=== PATIENT | male | born 1965 | race Caucasian/White ===

== ENCOUNTER 2018-06-30 13:15 | Inpatient (IN) | payer BC ==
--- NOTE | 2018-06-30 13:55 | EDM.PDOC ---
ED HPI GENERAL MEDICAL PROBLEM - General Chief Complaint: General Stated Complaint: BACK PAIN Time Seen by Provider: 06/30/18 13:37 Source of Information: Reports: Patient, Family History Limitations: Reports: No Limitations - History of Present Illness INITIAL COMMENTS - FREE TEXT/NARRATIVE: Patient presents to ER per EMS with complaints of low back pain with radiculopathy to legs. States bent over at [employer] yesterday and legs went numb and he went down to the floor. Patient states he has never had pain like that before. Was taken to the [place] ER. Had a MRI there which showed chronic degenerative changes in his back. Was given a shot of steroid and sent home on pain meds as he was doing better. [place] he was going to need follow up with his primary care provider and ultimately may need back surgery but it was not felt to be emergent in nature as there was no evidence of a ruptured disk. He does have a history of diabetes but denies ever losing feeling in his legs or feet from that. Today, he was doing okay when all of a sudden acute pain and numbness again hit. He has been taking oxycodone and flexeril as he was told that he would need to lose weight before he could ever have surgery. Denies loss of bowel or bladder in either instance of pain. No shortness of breath or chest pain. No nausea or vomiting. States hasn't had a bowel movement yet today and typically goes daily. Onset: Sudden Duration: Day(s):, Waxing/Waning Location: Reports: Back Quality: Reports: Burning Severity: Severe Improves with: Reports: Medication Worsens with: Reports: Movement Context: Reports: Activity Associated Symptoms: Denies: Confusion, Chest Pain, Cough, Fever/Chills, Loss of Appetite, Nausea/Vomiting, Shortness of Breath, Syncope, Weakness Treatments ARC TRIMMER: Reports: Other Medication(s) (oxycodone and flexeril) Lower Back Pain Score (Numeric/FACES): 7 - Related Data Allergies Allergy/AdvReac Type Severity Reaction Status Date / Time No Known Allergies Allergy Verified 06/30/18 13:37 Home Meds: Home Meds Aspirin 81 mg PO BRK 10/26/16 [History] Bosutinib [Bosulif] 500 mg PO DAILY 10/26/16 [History] Clopidogrel Bisulfate [Clopidogrel] 75 mg PO DAILY 10/26/16 [History] Famotidine [Pepcid] 10 mg PO BEDTIME 10/26/16 [History] Furosemide 40 mg PO DAILY 10/26/16 [History] Insulin Aspart Protam & Aspart [Novolog Mix 70-30 Flexpen Syrn] 50 units SQ ACDINNER 10/26/16 [History] Insulin Aspart Protam & Aspart [Novolog Mix 70-30 Flexpen Syrn] 100 units SQ ACBREAKFAST 10/26/16 [History] Lisinopril 2.5 mg PO DAILY 10/26/16 [History] Metoprolol Tartrate 25 mg PO BID 10/26/16 [History] Nitroglycerin [Nitrostat] 0.4 mg SL Q5M PRN 10/26/16 [History] atorvaSTATin Calcium [Atorvastatin Calcium] 40 mg PO DAILY 10/26/16 [History] metFORMIN HCl [Metformin HCl] 850 mg PO DAILY 10/26/16 [History] oxyCODONE ER [OxyCONTIN] 10 mg PO Q12HR PRN 10/26/16 [History] oxyCODONE HCl/Acetaminophen [oxyCODONE-Acetaminophen 5-325] 1 tab PO Q8H PRN [History] Cholecalciferol (Vitamin D3) [Vitamin D] 5,000 unit PO DAILY 06/30/18 [History] Cyanocobalamin (Vitamin B12) [Vitamin B12] 1,000 unit PO DAILY 06/30/18 [History ] Past Medical History Cardiovascular History: Reports: High Cholesterol, Hypertension, Stents Gastrointestinal History: Reports: GERD Endocrine/Metabolic History: Reports: Diabetes, Type II Oncologic (Cancer) History: Reports: Leukemia - Past Surgical History Cardiovascular Surgical History: Reports: Coronary Artery Stent Musculoskeletal Surgical History: Reports: Other (See Below) Other Musculoskeletal Surgeries/Procedures:: hip repair Social & Family History - Family History Family Medical History: Noncontributory - Tobacco Use Smoking Status *Q: Never Smoker - Caffeine Use Caffeine Use: Reports: None - Recreational Drug Use Recreational Drug Use: No ED ROS GENERAL - Review of Systems Review Of Systems: See Below Constitutional: Reports: Weakness. Denies: Fever, Chills, Malaise, Decreased Appetite Respiratory: Denies: Shortness of Breath, Cough Cardiovascular: Reports: Edema. Denies: Chest Pain, Lightheadedness Endocrine: Reports: Fatigue GI/Abdominal: Reports: Constipation. Denies: Abdominal Pain, Decreased Appetite , Nausea : Reports: No Symptoms Musculoskeletal: Reports: Back Pain Skin: Reports: No Symptoms Neurological: Reports: Weakness ED EXAM, GENERAL - Physical Exam Exam: See Below Exam Limited By: No Limitations General Appearance: Alert, WD/WN, Moderate Distress Ears: Normal External Exam, Normal TMs Nose: Normal Inspection, Normal Mucosa, No Blood Throat/Mouth: Normal Inspection, Normal Oropharynx Head: Normocephalic Neck: Normal Inspection, Supple, Non-Tender Respiratory/Chest: No Respiratory Distress, Lungs Clear, Normal Breath Sounds Cardiovascular: Regular Rate, Rhythm GI/Abdominal: Normal Bowel Sounds, Soft, Non-Tender Back Exam: Decreased Range of Motion, Muscle Spasm, Vertebral Tenderness Extremities: Normal Inspection, Pedal Edema (trace of edema in his legs) Neurological: Alert, Oriented, Other (neuropathy in feet) Skin Exam: Warm, Dry Course - Vital Signs Last Recorded V/S: Last Vital Signs Temp 99 F 06/30/18 13:16 Pulse 76 06/30/18 13:16 Resp 20 06/30/18 13:16 BP 152/67 H 06/30/18 13:16 Pulse Ox 97 06/30/18 13:16 - Re-Assessments/Exams Free Text/Narrative Re-Assessment/Exam: 06/30/18 13:57 Discussed with family. Will admit to Dr. Burgos for acute inpatient. Pain control, steroids and physical therapy. Departure - Departure Time of Disposition: 13:58 Disposition: Admitted As Inpatient 67 Condition: Fair Clinical Impression: Acute low back pain - Discharge Information *PRESCRIPTION DRUG MONITORING PROGRAM REVIEWED*: No *COPY OF PRESCRIPTION DRUG MONITORING REPORT IN PATIENT JARAD: No Referrals: Hayden Burgos MD [Primary Care Provider] - - Problem List & Annotations (1) Acute low back pain SNOMED Code(s): 516666330 Code(s): M54.5 - LOW BACK PAIN Status: Acute Priority: High Current Visit: Yes Qualifiers: Back pain laterality: bilateral Sciatica laterality: sciatica of left side - Problem List Review Problem List Initiated/Reviewed/Updated: Yes - Assessment/Plan Admission H&P: Please use this note as an admission H&P Assessment:: Acute low back pain with right radiculopathy Plan: Admit to Dr. Burgos. IV steroids, sliding scale insulin due to this. Pain control. Physical therapy.
[2018-06-30] MEDS ORDERED: fentaNYL 100 MCG/2 ML SDV IVPUSH PRN (14:25)
[2018-06-30] MEDS ORDERED: Polyethylene Glycol 3350 Powder 17 GM Packet PO SCH (14:25)
[2018-06-30] MEDS ORDERED: Sodium Chloride 0.9% 10 ML Syringe FLUSH PRN (14:25)
[2018-06-30] MEDS ORDERED: Ondansetron 4 MG Tab.DIS PO PRN (14:25)
[2018-06-30] MEDS ORDERED: oxyCODONE 5 MG Tab PO PRN (14:25)
[2018-06-30] MEDS ORDERED: Ondansetron 4 MG/2 ML SDV IV PRN (14:25)
[2018-06-30] MEDS ORDERED: Temazepam 15 MG Cap PO PRN (14:25)
[2018-06-30] MEDS ORDERED: oxyCODONE ER 10 MG TAB.ER PO PRN (14:25)
[2018-06-30] MEDS ORDERED: methylPREDNISolone Sodium Succinate 125 MG/2 ML SDV IVPUSH SCH (15:00)
[2018-06-30] MEDS ORDERED: Insuln Aspart Prot/Insulin Aspart 100 Units/ML 3 ML FlexPen SUBCUT SCH (17:00)
[2018-06-30] MEDS: Insulin Aspart 100 Units/ML 3 ML Pen SUBCUT SCH ×2 (17:58→20:39)
[2018-06-30] MEDS ORDERED: Enoxaparin 40 MG/0.4 ML Syringe SUBCUT SCH (20:00)
[2018-06-30] MEDS ORDERED: Metoprolol Tartrate 25 MG Tab PO SCH (20:00)
[2018-06-30] MEDS ORDERED: Ketorolac 30 MG/ML SDV IVPUSH SCH ×2 (20:00)
[2018-06-30] MEDS ORDERED: Cyclobenzaprine 10 MG Tab PO SCH (20:00)
[2018-06-30 20:41] VITALS: BP 152/59
--- NOTE | 2018-06-30 20:59 | PCM.DCSUM1 ---
Discharge Summary - Hospital Course Free Text/Narrative:: Patient presented to ER per EMS with complaints of low back pain with radiculopathy to legs. States bent over at [employer] yesterday and legs went numb and he went down to the floor. Patient states he has never had pain like that before. Was taken to the [place] ER. Had a MRI there which showed chronic degenerative changes in his back. Was given an IV injection of steroid and sent home on pain meds as he was doing better. [place] he was going to need follow up with his primary care provider and ultimately may need back surgery but it was not felt to be emergent in nature. He does have a history of diabetes but denies ever losing feeling in his legs or feet from that. He states he has never had numbness in his legs before. Today, he was doing okay when all of a sudden acute pain and numbness again hit. He has been taking oxycodone and flexeril and family had been assisting him. Brother relates he attempted to get up to the bathroom and "was like weight". Denies loss of bowel or bladder in either instance of pain, however, brother relates he was incontinent while sitting in the recliner earlier. No shortness of breath or chest pain. No nausea or vomiting. States hasn't had a bowel movement yet today and typically goes daily. Did have a BM yesterday. Diagnosis: Stroke: No - Discharge Data Discharge Date: 06/30/18 Discharge Disposition: Home, Self-Care 01 Condition: Fair - Discharge Diagnosis/Problem(s) (1) Acute low back pain SNOMED Code(s): 081278001 ICD Code: M54.5 - LOW BACK PAIN Status: Acute Priority: High Current Visit: Yes Qualifiers: Back pain laterality: bilateral Sciatica laterality: sciatica of left side - Patient Summary/Data Consults: Consultations 06/30/18 14:25 PT Evaluation and Treatment [CONS] Routine Hospital Course: Patient was resting comfortably in the recliner this afternoon while here. Ate supper without concern. Had the urge to void so staff was assisting him. Was unable to fully stand on his legs, got weak and states his legs were numb. Was incontinent of urine on the floor and related he had no awareness or control of it. He was also noted at that time to have 2 blisters on his buttocks which he relates are from using a heating pad at home. I was called in to reassess the patient. Is resting in the recliner and pain is controlled while in that position. Had increased pain with standing. He does have movement of his legs while in the chair. Senses touch to the ankle. No sensation to the bottom of his feet but does have history of diabetes as well. Describes sensation of being numb from the buttocks down. Had questioned repeating CT scan but with conversations held with radiologist, did not feel necessary. Advised to contact neurosurgeon. Contacted Dr. Contreras at [facility]. She requesting further evaluation of patient including rectal exam. Assisted patient back to bed with татьяна lift, very uncomfortable with that. Does have good rectal tone, able to sense pen pokes around the anus. Voided in urinal 300 ml with straining. Postvoid residual per cath 600 ml. Patient able to discriminate between dull and sharp to touch to the ankle. Essentially negative straight leg raise. Had pain with extension of left leg with this exam. Discussed exam findings again with Dr. Contreras. She recommended Toradol 30 mg IV. Did opt to have the patient be transferred to [place] for further evaluation and consideration of epidural injection if needed in am. Arrangements made for S transfer to [facility]. Keep NPO during transfer. - Patient Instructions Diet: NPO Other/Special Instructions: Transfer ambulance to Dr. Contreras/Dr. Briceno at [facility] - Discharge Plan *PRESCRIPTION DRUG MONITORING PROGRAM REVIEWED*: No *COPY OF PRESCRIPTION DRUG MONITORING REPORT IN PATIENT JARAD: No Home Medications: Home Meds Aspirin 81 mg PO BRK 10/26/16 [History] Bosutinib [Bosulif] 500 mg PO DAILY 10/26/16 [History] Clopidogrel Bisulfate [Clopidogrel] 75 mg PO DAILY 10/26/16 [History] Famotidine [Pepcid] 10 mg PO BEDTIME 10/26/16 [History] Furosemide 40 mg PO DAILY 10/26/16 [History] Insulin Aspart Protam & Aspart [Novolog Mix 70-30 Flexpen Syrn] 50 units SQ ACDINNER 10/26/16 [History] Insulin Aspart Protam & Aspart [Novolog Mix 70-30 Flexpen Syrn] 100 units SQ ACBREAKFAST 10/26/16 [History] Lisinopril 2.5 mg PO DAILY 10/26/16 [History] Metoprolol Tartrate 25 mg PO BID 10/26/16 [History] Nitroglycerin [Nitrostat] 0.4 mg SL Q5M PRN 10/26/16 [History] atorvaSTATin Calcium [Atorvastatin Calcium] 40 mg PO DAILY 10/26/16 [History] metFORMIN HCl [Metformin HCl] 850 mg PO DAILY 10/26/16 [History] oxyCODONE ER [OxyCONTIN] 10 mg PO Q12HR PRN 10/26/16 [History] oxyCODONE HCl/Acetaminophen [oxyCODONE-Acetaminophen 5-325] 1 tab PO Q8H PRN [History] Cholecalciferol (Vitamin D3) [Vitamin D] 5,000 unit PO DAILY 06/30/18 [History] Cyanocobalamin (Vitamin B12) [Vitamin B12] 1,000 unit PO DAILY 06/30/18 [History ] Forms: ED Department Discharge Referrals: Hayden Burgos MD [Primary Care Provider] - - Discharge Summary/Plan Comment DC Time >30 min.: No Discharge Summary/Plan Comment: Transfer to [facility] to Dr. Briceno - General Info Date of Service: 06/30/18 Admission Dx/Problem (Free Text: Acute Low Back Pain Functional Status: Reports: Pain Controlled, Tolerating Diet. Denies: Ambulating - Review of Systems General: Reports: Weakness HEENT: Reports: No Symptoms Pulmonary: Denies: Shortness of Breath, Cough Cardiovascular: Denies: Chest Pain, Edema, Lightheadedness Gastrointestinal: Denies: Abdominal Pain, Nausea, Vomiting Genitourinary: Reports: No Symptoms Musculoskeletal: Reports: Back Pain Skin: Reports: No Symptoms Neurological: Reports: Numbness, Paresthesia, Tingling, Difficulty Walking, Weakness - Patient Data Vitals - Most Recent: Last Vital Signs Temp 98.1 F 06/30/18 14:25 Pulse 80 06/30/18 20:37 Resp 18 06/30/18 14:25 BP 152/59 H 06/30/18 20:37 Pulse Ox 99 06/30/18 14:25 Weight - Most Recent: 280 lb Lab Results - Last 24 hrs: Laboratory Results - last 24 hr 06/30/18 06/30/18 06/30/18 Range/Units 17:38 18:35 18:35 WBC 20.7 H* (5.0-10.0) 10^3/uL RBC 4.41 L (4.50-6.00) 10^6/uL Hgb 12.4 L (14.0-18.0) g/dL Hct 37.9 L (40.0-54.0) % MCV 85.9 (82.0-94.0) fL MCH 28.1 (27.0-32.0) pg MCHC 32.7 L (33.0-38.0) g/dL RDW Coeff of Jeff 14.5 (11.0-15.0) % Plt Count 253 (150-400) 10^3/uL Add Manual Diff Yes Neutrophils % (Manual) 96 H (35-85) % Lymphocytes % (Manual) 4 L (21-55) % Sodium 136 (136-145) mEq/L Potassium 4.5 (3.5-5.0) mEq/L Chloride 102 (98-106) mEq/L Carbon Dioxide 26 (21-32) mmol/L BUN 32 H (7-18) mg/dL Creatinine 1.7 H (0.7-1.3) mg/dL Est Cr Clr Drug Dosing 50.83 mL/min Estimated GFR (MDRD) 43 L (>=60) mL/min Glucose 203 H D (75-99) mg/dL POC Glucose 133 H (75-105) mg/dl Calcium 8.5 (8.4-10.1) mg/dL C-Reactive Protein 1.2 H (0.2-0.8) mg/dL 06/30/18 Range/Units 20:21 WBC (5.0-10.0) 10^3/uL RBC (4.50-6.00) 10^6/uL Hgb (14.0-18.0) g/dL Hct (40.0-54.0) % MCV (82.0-94.0) fL MCH (27.0-32.0) pg MCHC (33.0-38.0) g/dL RDW Coeff of Jeff (11.0-15.0) % Plt Count (150-400) 10^3/uL Add Manual Diff Neutrophils % (Manual) (35-85) % Lymphocytes % (Manual) (21-55) % Sodium (136-145) mEq/L Potassium (3.5-5.0) mEq/L Chloride (98-106) mEq/L Carbon Dioxide (21-32) mmol/L BUN (7-18) mg/dL Creatinine (0.7-1.3) mg/dL Est Cr Clr Drug Dosing mL/min Estimated GFR (MDRD) (>=60) mL/min Glucose (75-99) mg/dL POC Glucose 260 H (75-105) mg/dl Calcium (8.4-10.1) mg/dL C-Reactive Protein (0.2-0.8) mg/dL Med Orders - Current: Current Medications Aspirin (Halfprin) 81 mg PO DAILY [facility] Atorvastatin Calcium (Lipitor) 40 mg PO DAILY [facility] Cholecalciferol (Vitamin D3) 5,000 units PO DAILY [facility] Clopidogrel Bisulfate (Plavix) 75 mg PO DAILY [facility] Cyanocobalamin (Vitamin B12) 1,000 mcg PO DAILY [facility] Cyclobenzaprine HCl (Flexeril) 10 mg PO TID [facility] Last Admin: 06/30/18 20:37 Dose: Not Given Enoxaparin Sodium (Lovenox) 40 mg SUBCUT BEDTIME [facility] Last Admin: 06/30/18 20:38 Dose: Not Given Fentanyl (Sublimaze) 50 mcg IVPUSH Q6H PRN PRN Reason: Pain Furosemide (Lasix) 40 mg PO DAILY [facility] Insulin Aspart (Novolog) 0 unit SUBCUT WITHMEALSANDBED [facility]; Protocol Last Admin: 06/30/18 20:39 Dose: 9 units Insulin Aspart (Novolog Mix 70-30) 50 unit SUBCUT ACDINNER [facility] Last Admin: 06/30/18 17:30 Dose: 50 unit Insulin Aspart (Novolog Mix 70-30) 100 unit SUBCUT ACBREAKFAST [facility] Ketorolac Tromethamine (Toradol) 30 mg IVPUSH Q6H [facility] Stop: 07/05/18 20:01 Last Admin: 06/30/18 20:47 Dose: 30 mg Lisinopril (Prinivil) 2.5 mg PO DAILY [facility] Metformin HCl (Glucophage) 850 mg PO DAILY [facility] Metoprolol Tartrate (Lopressor) 25 mg PO BID [facility] Last Admin: 06/30/18 20:37 Dose: 25 mg Non-Formulary Medication (Bosutinib [Bosulif]) 500 mg PO DAILY [facility] Ondansetron HCl (Zofran) 4 mg IV Q4H PRN PRN Reason: Nausea/Vomiting Ondansetron HCl (Zofran Odt) 4 mg PO Q4H PRN PRN Reason: nausea, able to take PO Oxycodone HCl (Oxycodone) 5 mg PO Q4H PRN PRN Reason: Pain (moderate 4-6) Oxycodone HCl (Oxycontin) 10 mg PO Q12H PRN PRN Reason: Pain Polyethylene Glycol (Miralax) 17 gm PO DAILY [facility] Last Admin: 06/30/18 14:45 Dose: 17 gm Sodium Chloride (Saline Flush) 10 ml FLUSH ASDIRECTED PRN PRN Reason: Keep Vein Open Temazepam (Restoril) 15 mg PO BEDTIME PRN PRN Reason: Sleep Discontinued Medications Ketorolac Tromethamine (Toradol) 30 mg IVPUSH Q6H [facility] Stop: 07/05/18 20:01 Methylprednisolone Sodium Succinate (Solu-Medrol) 62.5 mg IVPUSH Q12H [facility] Last Admin: 06/30/18 14:46 Dose: 62.5 mg - Exam General: Reports: Alert, Oriented HEENT: Reports: Mucous Membr. Moist/[place] Neck: Reports: Supple Lungs: Reports: Clear to Auscultation, Normal Respiratory Effort Cardiovascular: Reports: Regular Rate, Regular Rhythm GI/Abdominal Exam: Normal Bowel Sounds, Soft, Non-Tender Extremities: Other (see hospital course) Skin: Reports: Warm, Dry
[2018-07-01] MEDS ORDERED: Insuln Aspart Prot/Insulin Aspart 100 Units/ML 3 ML FlexPen SUBCUT SCH (07:00)
[2018-07-01] MEDS ORDERED: Cyanocobalamin (Vitamin B12) 1,000 MCG Tab PO SCH (08:00)
[2018-07-01] MEDS ORDERED: Lisinopril 5 MG Tab PO SCH (08:00)
[2018-07-01] MEDS ORDERED: Clopidogrel 75 MG Tab PO SCH (08:00)
[2018-07-01] MEDS ORDERED: Aspirin 81 MG Tab.EC PO SCH (08:00)
[2018-07-01] MEDS ORDERED: BOSUTINIB 500 MG PO SCH (08:00)
[2018-07-01] MEDS ORDERED: atorvaSTATin 20 MG Tab PO SCH (08:00)
[2018-07-01] MEDS ORDERED: Cholecalciferol (Vitamin D3) 1,000 Unit Tab PO SCH (08:00)
[2018-07-01] MEDS ORDERED: Furosemide 40 MG Tab PO SCH (08:00)
== END 2018-06-30 21:10 | DRG 347 ==
LOC: CC.ED 13:15 → CC.MS 14:00 → UNDOADMIN 14:14 → UNDODISIN 21:10
PROVIDERS: ADMIT Physician Assistant Medical; ATTEND Family Medicine
DX: M54.42 Lumbago with sciatica, left side (principal); M54.41 Lumbago with sciatica, right side; M54.10 Radiculopathy, site unspecified; E11.9 Type 2 diabetes mellitus without complications; I10 Essential (primary) hypertension; E78.00 Pure hypercholesterolemia, unspecified; R32 Unspecified urinary incontinence; Z79.82 Long term (current) use of aspirin; Z79.899 Other long term (current) drug therapy; Z79.4 Long term (current) use of insulin; Z79.02 Long term (current) use of antithrombotics/antiplatelets; Z85.6 Personal history of leukemia; Z95.5 Presence of coronary angioplasty implant and graft
CPT/HCPCS: 36415; 80048; 82962; 85025; 86140; 99284; A9270-GY; J1815-GY; J1885; J2930

== ENCOUNTER 2019-02-05 11:34 | Observation (INO) | payer BC ==
[2019-02-05] MEDS ORDERED: Sodium Chloride 0.9% 10 ML Syringe FLUSH PRN (11:54)
[2019-02-05] MEDS ORDERED: Acetaminophen 325 MG Tab PO PRN (11:54)
[2019-02-05] MEDS ORDERED: Nitroglycerin 0.4 MG Tab.SL SL PRN (11:56)
[2019-02-05] MEDS ORDERED: Acetaminophen/oxyCODONE 325-5 MG Tab PO PRN (11:56)
[2019-02-05] MEDS: Clindamycin Phosphate in D5W 300 MG in Premix Bag 1 BAG IV SCH ×6 (13:10→23:47)
[2019-02-05] MEDS ORDERED: Iopamidol 510 MG/ML 50 ML SDV IARTIC ONE ×2 (13:10)
[2019-02-05 13:43] LABS: CHLORIDE,CL 102 mEq/L (98-106); SODIUM,NA 138 mEq/L (136-145)
[2019-02-05] MEDS: Ciprofloxacin 0.3% Ophth Soln 2.5 ML Bottle EARBOTH SCH ×2 (16:03→20:23)
[2019-02-05] MEDS: Enoxaparin 40 MG/0.4 ML Syringe SUBCUT SCH (16:04)
[2019-02-05] MEDS ORDERED: ACETAMINOPHEN PO PRN (16:06)
[2019-02-05] MEDS ORDERED: OXYCODONE PO PRN (16:06)
[2019-02-05] MEDS: Insulin Aspart 100 Units/ML 3 ML Pen SUBCUT SCH (17:14)
[2019-02-05] MEDS: Insulin NPH/Insulin Regular,Human 70-30 100 Units/ML 10 ML Vial SUBCUT SCH (18:46)
[2019-02-05] MEDS: METOPROLOL TARTRATE 25 MG PO SCH (20:24)
[2019-02-05] MEDS: Famotidine 20 MG Tab PO SCH (20:26)
[2019-02-06] MEDS: Clindamycin Phosphate in D5W 300 MG in Premix Bag 1 BAG IV SCH ×8 (05:15→23:43)
[2019-02-06] MEDS: Aspirin 81 MG Tab.Chew PO SCH (07:32)
[2019-02-06] MEDS: Cyanocobalamin (Vitamin B12) 1,000 MCG Tab PO SCH (07:32)
[2019-02-06] MEDS: LISINOPRIL 2.5 MG PO SCH (07:33)
[2019-02-06] MEDS: METOPROLOL TARTRATE 25 MG PO SCH ×2 (07:33→20:03)
[2019-02-06] MEDS: METFORMIN 850 MG PO SCH (07:33)
[2019-02-06] MEDS: **PTOM** Furosemide 40 MG Tab PO SCH (07:33)
[2019-02-06] MEDS: ATORVASTATIN CALCIUM 40 MG PO SCH (07:34)
[2019-02-06] MEDS: CLOPIDOGREL 75 MG PO SCH (07:34)
[2019-02-06] MEDS: Ciprofloxacin 0.3% Ophth Soln 2.5 ML Bottle EARBOTH SCH ×4 (07:36→20:05)
[2019-02-06] MEDS: BOSUTINIB 500 MG PO SCH (07:36)
[2019-02-06] MEDS: Insulin Aspart 100 Units/ML 3 ML Pen SUBCUT SCH ×3 (07:48→17:24)
[2019-02-06] MEDS: Insulin NPH/Insulin Regular,Human 70-30 100 Units/ML 10 ML Vial SUBCUT SCH ×2 (07:50→17:23)
[2019-02-06] MEDS ORDERED: Lisinopril 5 MG Tab PO SCH (08:00)
--- NOTE | 2019-02-06 09:03 | PCM.PN ---
- General Info Date of Service: 02/06/19 Admission Dx/Problem (Free Text): Facial Cellulitis Functional Status: Reports: Pain Controlled, Tolerating Diet, Ambulating - Review of Systems General: Denies: Fever, Weakness, Fatigue, Malaise HEENT: Reports: Other (facial redness to the face) Pulmonary: Denies: Shortness of Breath, Cough Cardiovascular: Denies: Chest Pain, Edema, Lightheadedness Gastrointestinal: Denies: Abdominal Pain, Nausea, Vomiting Genitourinary: Reports: No Symptoms Musculoskeletal: Reports: No Symptoms Skin: Reports: Other (redness and warmth to left side of face) Neurological: Reports: No Symptoms Psychiatric: Reports: No Symptoms - Patient Data Vitals - Most Recent: Last Vital Signs Temp 97.7 F 02/06/19 08:00 Pulse 61 02/06/19 08:00 Resp 16 02/06/19 08:00 BP 120/67 02/06/19 08:00 Pulse Ox 100 02/06/19 08:00 Weight - Most Recent: 267 lb I&O - Last 24 Hours: Intake & Output 02/05/19 02/06/19 02/06/19 22:59 06:59 14:59 Intake Total 50 50 Balance 50 50 Lab Results Last 24 Hours: Laboratory Results - last 24 hr 02/05/19 02/05/19 02/05/19 Range/Units 13:30 13:30 17:11 WBC 10.6 H (5.0-10.0) 10^3/uL RBC 4.34 L (4.50-6.00) 10^6/uL Hgb 12.5 L (14.0-18.0) g/dL Hct 37.3 L (40.0-54.0) % MCV 85.9 (82.0-94.0) fL MCH 28.8 (27.0-32.0) pg MCHC 33.5 (33.0-38.0) g/dL RDW Coeff of Jeff 13.8 (11.0-15.0) % Plt Count 266 (150-400) 10^3/uL Neut % (Auto) 70.8 (35-85) % Lymph % (Auto) 17.4 (10-55) % [place] % (Auto) 10.2 (0-16) % Eos % (Auto) 1.3 (0-5) % Baso % (Auto) 0.3 (0-3) % Neut # (Auto) 7.54 H (1.80-7.00) 10^3/uL Lymph # (Auto) 1.85 (1.00-4.80) 10^3/uL [place] # (Auto) 1.08 H (0.00-0.80) 10^3/uL Eos # (Auto) 0.14 (0.00-0.45) 10^3/uL Baso # (Auto) 0.03 10^3/uL Sodium 138 (136-145) mEq/L Potassium 4.7 (3.5-5.0) mEq/L Chloride 102 (98-106) mEq/L Carbon Dioxide 30 (21-32) mmol/L BUN 25 H (7-18) mg/dL Creatinine 1.4 H (0.7-1.3) mg/dL Est Cr Clr Drug Dosing TNP Estimated GFR (MDRD) 53 L (>=60) mL/min Glucose 106 H D (75-99) mg/dL POC Glucose 59 L (75-105) mg/dl Calcium 9.0 (8.4-10.1) mg/dL C-Reactive Protein 1.5 H (0.2-0.8) mg/dL 02/05/19 Range/Units 20:20 WBC (5.0-10.0) 10^3/uL RBC (4.50-6.00) 10^6/uL Hgb (14.0-18.0) g/dL Hct (40.0-54.0) % MCV (82.0-94.0) fL MCH (27.0-32.0) pg MCHC (33.0-38.0) g/dL RDW Coeff of Jeff (11.0-15.0) % Plt Count (150-400) 10^3/uL Neut % (Auto) (35-85) % Lymph % (Auto) (10-55) % [place] % (Auto) (0-16) % Eos % (Auto) (0-5) % Baso % (Auto) (0-3) % Neut # (Auto) (1.80-7.00) 10^3/uL Lymph # (Auto) (1.00-4.80) 10^3/uL [place] # (Auto) (0.00-0.80) 10^3/uL Eos # (Auto) (0.00-0.45) 10^3/uL Baso # (Auto) 10^3/uL Sodium (136-145) mEq/L Potassium (3.5-5.0) mEq/L Chloride (98-106) mEq/L Carbon Dioxide (21-32) mmol/L BUN (7-18) mg/dL Creatinine (0.7-1.3) mg/dL Est Cr Clr Drug Dosing Estimated GFR (MDRD) (>=60) mL/min Glucose (75-99) mg/dL POC Glucose 143 H (75-105) mg/dl Calcium (8.4-10.1) mg/dL C-Reactive Protein (0.2-0.8) mg/dL Med Orders - Current: Current Medications Acetaminophen (Tylenol) 650 mg PO Q4H PRN PRN Reason: Pain (Mild 1-3)/fever Aspirin (Aspirin) 81 mg PO DAILY [facility] Last Admin: 02/06/19 07:32 Dose: 81 mg Ciprofloxacin (Ciloxan 0.3% Ophth Soln) 0 ml EARBOTH QID [facility] Last Admin: 02/06/19 07:36 Dose: 2 drop Clopidogrel Bisulfate (Plavix) 75 mg PO DAILY [facility] Last Admin: 02/06/19 07:34 Dose: 75 mg Cyanocobalamin (Vitamin B12) 1,000 mcg PO DAILY [facility] Last Admin: 02/06/19 07:32 Dose: 1,000 mcg Enoxaparin Sodium (Lovenox) 40 mg SUBCUT Q24H [facility] Last Admin: 02/05/19 16:04 Dose: 40 mg Famotidine (Pepcid) 10 mg PO BEDTIME [facility] Last Admin: 02/05/19 20:26 Dose: Not Given Furosemide (Lasix) 40 mg PO DAILY [facility] Last Admin: 02/06/19 07:33 Dose: 40 mg Clindamycin Phosphate 300 mg/ (Premix) 50 mls @ 100 mls/hr IV Q6H [facility] Last Admin: 02/06/19 05:15 Dose: 100 mls/hr Insulin Aspart (Novolog) 0 unit SUBCUT TIDMEALS [facility]; Protocol Last Admin: 02/06/19 07:48 Dose: Not Given Insulin Human Isoph/Insulin Regular (Humulin 70-30) 60 units SUBCUT 1730 [facility] Last Admin: 02/05/19 18:46 Dose: Not Given Insulin Human Isoph/Insulin Regular (Humulin 70-30) 80 units SUBCUT DAILY [facility] Last Admin: 02/06/19 07:50 Dose: 80 units Metformin HCl (Glucophage) 850 mg PO DAILY [facility] Last Admin: 02/06/19 07:33 Dose: Not Given Metoprolol Tartrate (Lopressor) 25 mg PO BID [facility] Last Admin: 02/06/19 07:33 Dose: 25 mg Nitroglycerin (Nitrostat) 0.4 mg SL Q5M PRN PRN Reason: Chest Pain Ptom Atorvastatin Calcium 40 Mg 40 mg PO DAILY [facility] Last Admin: 02/06/19 07:34 Dose: 40 mg Ptom Bosutinib (500 Mg) 500 mg PO DAILY [facility] Last Admin: 02/06/19 07:36 Dose: 500 mg Ptom Lisinopril (2.5 Mg) 2.5 mg PO DAILY [facility] Last Admin: 02/06/19 07:33 Dose: 2.5 mg Ptom Oxycodone/Acetaminophen 10- 325mg Tab 1 1 tab PO Q8H PRN PRN Reason: Pain Sodium Chloride (Saline Flush) 10 ml FLUSH ASDIRECTED PRN PRN Reason: Keep Vein Open Discontinued Medications Iopamidol (Isovue-250 (51%)) 50 ml IARTIC ONETIME ONE Stop: 02/05/19 13:11 Last Admin: 02/05/19 14:41 Dose: Not Given Iopamidol (Isovue-250 (51%)) 100 ml IARTIC ONETIME ONE Stop: 02/05/19 13:11 Last Admin: 02/05/19 13:20 Dose: 100 ml Lisinopril (Prinivil) 2.5 mg PO DAILY [facility] Oxycodone/Acetaminophen (Percocet 325-5 Mg) 2 tab PO Q8H PRN PRN Reason: Pain - Exam General: Alert, Oriented HEENT: Mucous Membr. Moist/[place] Neck: Supple Lungs: Clear to Auscultation, Normal Respiratory Effort Cardiovascular: Regular Rate, Regular Rhythm GI/Abdominal Exam: Normal Bowel Sounds, Soft, Non-Tender Skin: Other (left side facial redness has improved since admission. Less swelling by the ear. Mild warmth. Patient states less tender.) Wound/Incisions: Erythema Improving Psy/Mental Status: Alert - Problem List & Annotations (1) Facial cellulitis SNOMED Code(s): 619833435 Code(s): L03.211 - CELLULITIS OF FACE Status: Acute Priority: High Current Visit: Yes - Problem List Review Problem List Initiated/Reviewed/Updated: Yes - My Orders Last 24 Hours: My Active Orders 02/07/19 05:11 BASIC METABOLIC PANEL,BMP [CHEM] AM C-REACTIVE PROTEIN [CHEM] AM CBC WITH AUTO DIFF [HEME] AM - Assessment Assessment:: Patient is much improved today. Facial redness much less vivid. Less warmth. Patient states less tender today. Afebrile. No drainage from the ear noted. Ear less swollen. WBC 10.6 today. CRP 1.5. Creatinine 1.4. Up and about without difficulty. Appetite good. Will continue with IV Cleocin. Probable discharge tomorrow.
[2019-02-06] MEDS: Enoxaparin 40 MG/0.4 ML Syringe SUBCUT SCH (14:58)
[2019-02-06] MEDS: Famotidine 20 MG Tab PO SCH (20:04)
[2019-02-07] MEDS: Clindamycin Phosphate in D5W 300 MG in Premix Bag 1 BAG IV SCH ×2 (06:23)
[2019-02-07] MEDS: Insulin NPH/Insulin Regular,Human 70-30 100 Units/ML 10 ML Vial SUBCUT SCH (08:19)
[2019-02-07] MEDS: CLOPIDOGREL 75 MG PO SCH (08:20)
[2019-02-07] MEDS: Aspirin 81 MG Tab.Chew PO SCH (08:20)
[2019-02-07] MEDS: Cyanocobalamin (Vitamin B12) 1,000 MCG Tab PO SCH (08:20)
[2019-02-07] MEDS: METOPROLOL TARTRATE 25 MG PO SCH (08:20)
[2019-02-07] MEDS: METFORMIN 850 MG PO SCH (08:20)
[2019-02-07 08:21] VITALS: BP 116/65
[2019-02-07] MEDS: **PTOM** Furosemide 40 MG Tab PO SCH (08:22)
[2019-02-07] MEDS: Insulin Aspart 100 Units/ML 3 ML Pen SUBCUT SCH (08:23)
[2019-02-07] MEDS: LISINOPRIL 2.5 MG PO SCH (08:24)
[2019-02-07] MEDS: ATORVASTATIN CALCIUM 40 MG PO SCH (08:24)
[2019-02-07] MEDS: BOSUTINIB 500 MG PO SCH (08:26)
[2019-02-07] MEDS: Ciprofloxacin 0.3% Ophth Soln 2.5 ML Bottle EARBOTH SCH (08:28)
--- NOTE | 2019-02-09 21:06 | PCM.DCSUM1 ---
Discharge Summary - Hospital Course Free Text/Narrative:: Patient presented to see Solitario Newell with concerns of redness around his left eye. States for the day prior he had noted redness and swelling of the left eye and PT had also noted redness to the left cheek. Had not been experiencing any fevers. Exam in clinic did also show otorrhea in his ear canals bilaterally. Increased temp noted at clinic of 100.2. Admitted for IV antibiotics, labs and CT scan of facial region. Diagnosis: Stroke: No Modified [place] Scale: No Symptoms at All Modified [place] Scale Score: 0 - Discharge Data Discharge Date: 02/07/19 Discharge Disposition: Home, Self-Care 01 Condition: Good - Discharge Diagnosis/Problem(s) (1) Facial cellulitis SNOMED Code(s): 268005169 ICD Code: L03.211 - CELLULITIS OF FACE Status: Acute Priority: High - Patient Summary/Data Complications: none Hospital Course: Patient has done well. Significant improvement noted to facial region. Swelling down around left ear and eye. Minimal redness noted to cheek and eye. CT scan had shown periorbital cellulitis. Improved with IV Cleocin. Is afebrile now. WBC 10.6 and CRP 1.7. No further drainage from ears. Is ambulating about in the room. Doing well. Discharge home on oral Cleocin. Continue with PT as outpatient for ongoing back pain/weakness in legs. - Patient Instructions Diet: Usual Diet as Tolerated Activity: As Tolerated - Discharge Plan *PRESCRIPTION DRUG MONITORING PROGRAM REVIEWED*: No *COPY OF PRESCRIPTION DRUG MONITORING REPORT IN PATIENT JARAD: No Prescriptions/Med Rec: Ciprofloxacin [Ciloxan 0.3% Oph Soln] 2.5 ml EYELF TID #1 bottle Clindamycin HCl 300 mg PO QID #40 capsule Hydrocort/Neomycin/Polymyxin B [Frcusdzu-Ghyutfyry-UE Otic Susp] 10 ml .ROUTE TID #1 bottle Home Medications: Home Meds Aspirin 81 mg PO DAILY 10/26/16 [History] Famotidine [Pepcid] 20 mg PO BEDTIME 10/26/16 [History] Furosemide 40 mg PO DAILY 10/26/16 [History] Insulin Aspart Protam & Aspart [Novolog Mix 70-30 Flexpen Syrn] 60 units SQ 1730 10/26/16 [History] Insulin Aspart Protam & Aspart [Novolog Mix 70-30 Flexpen Syrn] 80 units SQ DAILY 10/26/16 [History] Lisinopril 2.5 mg PO DAILY 10/26/16 [History] Metoprolol Tartrate 25 mg PO BID 10/26/16 [History] Nitroglycerin [Nitrostat] 0.4 mg SL Q5M PRN 10/26/16 [History] atorvaSTATin Calcium [Atorvastatin Calcium] 40 mg PO DAILY 10/26/16 [History] metFORMIN HCl [Metformin HCl] 850 mg PO DAILY 10/26/16 [History] Cholecalciferol (Vitamin D3) [Vitamin D] 5,000 unit PO DAILY 06/30/18 [History] Cyanocobalamin (Vitamin B12) [Vitamin B12] 1,000 unit PO DAILY 06/30/18 [History ] Acetaminophen/oxyCODONE [Percocet 325-10 MG] 1 tab PO Q8H PRN 02/05/19 [History] Bosutinib [Bosulif] 500 mg PO DAILY 02/05/19 [History] Clopidogrel [Plavix] 75 mg PO DAILY 02/05/19 [History] Ciprofloxacin [Ciloxan 0.3% Ophth Soln] 2.5 ml EYELF TID #1 bottle 02/07/19 [Rx] Clindamycin HCl 300 mg PO QID #40 capsule 02/07/19 [Rx] Hydrocort/Neomycin/Polymyxin B [Kttvhtet-Isdffeqcd-HU Otic Susp] 10 ml .ROUTE TID #1 bottle 02/07/19 [Rx] Patient Handouts: Cellulitis, Adult Referrals: Hayden Burgos MD [ED Physician] - - Discharge Summary/Plan Comment DC Time >30 min.: No - General Info Date of Service: 02/07/19 Admission Dx/Problem (Free Text: Facial Cellulitis Functional Status: Reports: Pain Controlled, Tolerating Diet, Ambulating - Review of Systems General: Reports: Weakness. Denies: Fever, Fatigue HEENT: Denies: Ear Pain, Eye Pain (lid redness and swelling much improved), Sore Throat Pulmonary: Denies: Shortness of Breath, Cough Cardiovascular: Denies: Chest Pain, Edema, Lightheadedness Gastrointestinal: Denies: Abdominal Pain, Nausea, Vomiting Genitourinary: Reports: No Symptoms Musculoskeletal: Reports: Back Pain Skin: Reports: Other (facial redness improving) Neurological: Reports: No Symptoms Psychiatric: Reports: No Symptoms - Patient Data Vitals - Most Recent: Last Vital Signs Temp 97.8 F 02/07/19 08:00 Pulse 64 02/07/19 08:20 Resp 20 02/07/19 08:00 BP 116/65 02/07/19 08:20 Pulse Ox 100 02/07/19 08:00 Weight - Most Recent: 267 lb Med Orders - Current: Current Medications Discontinued Medications Acetaminophen (Tylenol) 650 mg PO Q4H PRN PRN Reason: Pain (Mild 1-3)/fever Aspirin (Aspirin) 81 mg PO DAILY [facility] Last Admin: 02/07/19 08:20 Dose: 81 mg Ciprofloxacin (Ciloxan 0.3% Ophth Soln) 0 ml EARBOTH QID [facility] Last Admin: 02/07/19 08:28 Dose: 2 drop Clopidogrel Bisulfate (Plavix) 75 mg PO DAILY [facility] Last Admin: 02/07/19 08:20 Dose: 75 mg Cyanocobalamin (Vitamin B12) 1,000 mcg PO DAILY [facility] Last Admin: 02/07/19 08:20 Dose: 1,000 mcg Enoxaparin Sodium (Lovenox) 40 mg SUBCUT Q24H [facility] Last Admin: 02/06/19 14:58 Dose: 40 mg Famotidine (Pepcid) 10 mg PO BEDTIME [facility] Last Admin: 02/06/19 20:04 Dose: 10 mg Furosemide (Lasix) 40 mg PO DAILY [facility] Last Admin: 02/07/19 08:22 Dose: Not Given Clindamycin Phosphate 300 mg/ (Premix) 50 mls @ 100 mls/hr IV Q6H [facility] Last Admin: 02/07/19 06:23 Dose: 100 mls/hr Insulin Aspart (Novolog) 0 unit SUBCUT TIDMEALS [facility]; Protocol Last Admin: 02/07/19 08:23 Dose: Not Given Insulin Human Isoph/Insulin Regular (Humulin 70-30) 60 units SUBCUT 1730 [facility] Last Admin: 02/06/19 17:23 Dose: 60 unit Insulin Human Isoph/Insulin Regular (Humulin 70-30) 80 units SUBCUT DAILY [facility] Last Admin: 02/07/19 08:19 Dose: 80 units Iopamidol (Isovue-250 (51%)) 50 ml IARTIC ONETIME ONE Stop: 02/05/19 13:11 Last Admin: 02/05/19 14:41 Dose: Not Given Iopamidol (Isovue-250 (51%)) 100 ml IARTIC ONETIME ONE Stop: 02/05/19 13:11 Last Admin: 02/05/19 13:20 Dose: 100 ml Lisinopril (Prinivil) 2.5 mg PO DAILY [facility] Metformin HCl (Glucophage) 850 mg PO DAILY [facility] Last Admin: 02/07/19 08:20 Dose: 850 mg Metoprolol Tartrate (Lopressor) 25 mg PO BID [facility] Last Admin: 02/07/19 08:20 Dose: 25 mg Nitroglycerin (Nitrostat) 0.4 mg SL Q5M PRN PRN Reason: Chest Pain Ptom Atorvastatin Calcium 40 Mg 40 mg PO DAILY [facility] Last Admin: 02/07/19 08:24 Dose: 40 mg Ptom Bosutinib (500 Mg) 500 mg PO DAILY [facility] Last Admin: 02/07/19 08:26 Dose: 500 mg Ptom Lisinopril (2.5 Mg) 2.5 mg PO DAILY [facility] Last Admin: 02/07/19 08:24 Dose: 2.5 mg Ptom Oxycodone/Acetaminophen 10- 325mg Tab 1 1 tab PO Q8H PRN PRN Reason: Pain Oxycodone/Acetaminophen (Percocet 325-5 Mg) 2 tab PO Q8H PRN PRN Reason: Pain Sodium Chloride (Saline Flush) 10 ml FLUSH ASDIRECTED PRN PRN Reason: Keep Vein Open - Exam General: Reports: Alert, Oriented HEENT: Reports: Mucous Membr. Moist/[place], Other (facial redness, swelling and lid redness and swelling much improved) Neck: Reports: Supple Lungs: Reports: Clear to Auscultation, Normal Respiratory Effort Cardiovascular: Reports: Regular Rate, Regular Rhythm GI/Abdominal Exam: Normal Bowel Sounds, Soft, Non-Tender Extremities: Normal Inspection, No Pedal Edema Skin: Reports: Warm, Dry Wound/Incisions: Reports: Erythema Improving Neurological: Reports: No New Focal Deficit
== END 2019-02-07 10:00 | disposition home or self-care (01) ==
LOC: UNDOADMOB 11:34 → CC.MS 11:34
PROVIDERS: ADMIT Physician Assistant Medical; ATTEND Family Medicine
DX: L03.211 Cellulitis of face (principal); I25.10 Atherosclerotic heart disease of native coronary artery without angina pectoris; N18.9 Chronic kidney disease, unspecified; E11.9 Type 2 diabetes mellitus without complications; Z79.82 Long term (current) use of aspirin; Z79.899 Other long term (current) drug therapy; Z79.4 Long term (current) use of insulin; Z79.02 Long term (current) use of antithrombotics/antiplatelets; Z79.2 Long term (current) use of antibiotics
CPT/HCPCS: 36415; 70487; 80048; 82962; 85025; 86140; A9270; J1650; J3490; Q9957; 96365; 96366; 96372; 96376; G0378; G0379

== ENCOUNTER → 2020-09-17 | Day surgery (SDC) | payer BC ==
[~2020-09-17] MED LIST: Ketamine 200 MG/20 ML MDV ONE; Lactated Ringers 1,000 ML IV SCH; Propofol 200 MG/20 ML SDV ONE; fentaNYL 100 MCG/2 ML SDV ONE
[2020-09-17 10:00] VITALS: BP 143/68; PULSE 75
--- NOTE | 2020-09-17 11:39 | OR ---
DATE OF OPERATION: 09/17/2020 PREOPERATIVE DIAGNOSIS: HISTORY OF COLON CANCER. POSTOPERATIVE DIAGNOSIS: HISTORY OF COLON CANCER. SURGEON: Hayden Burgos MD PROCEDURE: SURVEILLANCE COLONOSCOPY WITH BIOPSY X1. ANESTHESIA: MAC. COMPLICATIONS: None. SPECIMEN: Perianal biopsy x1. FINDINGS: 1. Full-length colonoscopy. 2. No signs of polyp or cancer recurrence. 3. Small perianal ulceration. RECOMMENDATIONS: Followup colonoscopy in 3 years. INDICATIONS: The patient has a history of a malignant polyp removal in the past. He is overdue for a 3-year scope. DESCRIPTION OF PROCEDURE: The patient was prepped and draped, placed in the left lateral decubitus position. A lubricated Olympus colonoscope was inserted and with ease advanced to the cecum. The patient's prep was borderline. There was a lot of stool throughout the colon, but we were able to irrigate most of this, smaller lesions certainly may have been missed. We were able to directly visualize the ileocecal valve. It was difficult to see any appendiceal orifice due to the volume of stool in the cecal pouch. Upon withdrawal, the right transverse and descending colons appeared completely benign. I could find no signs of any polyp, recurrence in the sigmoid and rectosigmoid area as prior. No signs of any vascular abnormalities, bleeding sites, diverticula, or colitis. The rectal vault appeared benign. Right inside the anal verge, the patient had a small thickened area with a shallow ulceration on top, looks like a small little perianal abscess. I did do a biopsy of this. Air was then suctioned and the scope removed without complication. REANNA/KEZIA /[id number]
== END ==
LOC: CC.SDS 08:04
PROVIDERS: ATTEND Family Medicine
DX: Z12.11 Encounter for screening for malignant neoplasm of colon (principal); K62.1 Rectal polyp; K62.6 Ulcer of anus and rectum; I25.10 Atherosclerotic heart disease of native coronary artery without angina pectoris; E11.22 Type 2 diabetes mellitus with diabetic chronic kidney disease; I10 Essential (primary) hypertension; E78.5 Hyperlipidemia, unspecified; I12.9 Hypertensive chronic kidney disease with stage 1 through stage 4 chronic kidney disease, or unspecified chronic kidney disease; K21.9 Gastro-esophageal reflux disease without esophagitis; C92.10 Chronic myeloid leukemia, BCR/ABL-positive, not having achieved remission; Z79.82 Long term (current) use of aspirin; Z79.4 Long term (current) use of insulin; Z79.899 Other long term (current) drug therapy; Z98.890 Other specified postprocedural states; Z85.038 Personal history of other malignant neoplasm of large intestine; Z86.010 Personal history of colon polyps
CPT/HCPCS: 82962; J2704; J3010; J7120

== ENCOUNTER → 2023-10-19 | Day surgery (SDC) | payer MEDICARE, OTHER ==
[~2023-10-19] MED LIST changes: -fentaNYL 100 MCG/2 ML SDV ONE; +fentaNYL 50 MCG/ML SDV ONE
[2023-10-19 09:17] VITALS: BP 126/57; PULSE 65
== END ==
LOC: CC.SDS 06:59
PROVIDERS: ATTEND Family Medicine
DX: K57.32 Diverticulitis of large intestine without perforation or abscess without bleeding (principal); E78.5 Hyperlipidemia, unspecified; K21.9 Gastro-esophageal reflux disease without esophagitis; G47.33 Obstructive sleep apnea (adult) (pediatric); E11.22 Type 2 diabetes mellitus with diabetic chronic kidney disease; I12.9 Hypertensive chronic kidney disease with stage 1 through stage 4 chronic kidney disease, or unspecified chronic kidney disease; N18.9 Chronic kidney disease, unspecified; Z79.899 Other long term (current) drug therapy; Z79.82 Long term (current) use of aspirin; Z79.84 Long term (current) use of oral hypoglycemic drugs; Z79.4 Long term (current) use of insulin
CPT/HCPCS: 00812; J2704; J3010; J3490; J7120